=== PATIENT | female | born 1970 | race African-American/Black ===

== ENCOUNTER 2016-05-22 08:13 | Emergency (ER) | payer OTHER ==
[~2016-05-22] VITALS: Ht 160 cm; Wt 86.2 kg
[2016-05-22 08:14] VITALS: BP 142/97
[2016-05-22] MEDS ORDERED: IMITREX 25 MG T25 M1 PO (08:44)
== END 2016-05-22 08:45 | disposition home or self-care (01) ==
LOC: ER 08:13
DX: Q38.6 Other congenital malformations of mouth (principal)

== ENCOUNTER → 2017-06-04 | Outpatient (CLI) | payer OTHER ==
[~2017-06-04] MED LIST: IMITREX 25 MG T25 M1 PO
== END ==
LOC: RAD 06-03 10:21
DX: Z12.31 Encounter for screening mammogram for malignant neoplasm of breast (principal)

== ENCOUNTER → 2017-06-09 | Outpatient (CLI) | payer OTHER ==
--- NOTE | ~2017-06-09 | S ---
[facility] [place] [address] SURGICAL PATH RPT PROCEDURE Name: ISABEL DAHL Room #: REG TUTU MelloPatriciaKira.#: [id number] Admission: 06/09/17 Date of : 70 Discharge: Report #: [id number] Path Case #: [id number] PATHOLOGY REPORT COLLECTION DATE: 06/09/2017 RECEIVED DATE: 06/09/2017 SUBMITTING PHYS: Dr. John Oneill OTHER PHYS: Dr. Sayra Mark SPECIMEN(S) RECEIVED: A.Right breast calcifications-central * * * * * * * * * * * * FINAL DIAGNOSIS: "Right breast calcifications-central", imaging guided needle biopsy: - Fibroadenoma with coarse microcalcifications present, measuring 0.5 cm on the slide. - Background benign breast tissue with fibrocystic changes including stromal fibrosis, small cyst formation, columnar cell hyperplasia and adenosis; no cytologic atypia or malignancy seen. COMMENT: The case is co-reviewed with Dr. Ronda Whatley. Clinical and radiographic correlation is recommended. (CLW:winnie; 06/10/2017) PATHOLOGIST: Cece Powell M.D. REPORT ELECTRONICALLY SIGNED BY: Cece Powell M.D. DATE/TIME: 06/10/2017 21:05 * * * * * * * * * * * * GROSS PATHOLOGY: Received in formalin labeled "Isabel Dahl, right stereotactic breast biopsy, central per requisition slip" and consists of a few huston-white and resilient tissue cores/fragments ranging in size from 0.5 x 0.3 cm to 3.3 x 0.4 cm. 2 cores are received in a white cassette. The specimen is totally submitted A1-A3, A1 cores received in white cassette. The cold ischemic time is 5 minutes. The formalin fixation time is approximately 11 hours. (ALESIA; 06/09/2017) CLINICAL HISTORY: Right breast calcification INITIAL CPT CODE(S): [facility] [place] [address] SURGICAL PATH RPT PROCEDURE Name: ISABEL DAHL Room #: REG [facility].#: [id number] Admission: 06/09/17 Date of : 70 Discharge: Report #: [id number] Path Case #: [id number]; [id number] Professional services performed by [facility] at [address] , [place] [address] Technical services performed by [facility] at [address] [place] [address], [place] [address]. [facility] [address] [place] [address] PHONE: [phone] DIRECTOR: Tonio Smallwood M.D. * * * END OF REPORT * * *
== END ==
LOC: RADSTEREO 01:18
DX: D24.1 Benign neoplasm of right breast (principal); N62 Hypertrophy of breast

== ENCOUNTER → 2017-12-09 | Outpatient (CLI) | payer OTHER | LOC: RAD 02:33 | DX: R92.8 Other abnormal and inconclusive findings on diagnostic imaging of breast (principal); G43.911 Migraine, unspecified, intractable, with status migrainosus ==

== ENCOUNTER → 2018-06-22 | Outpatient (CLI) | payer OTHER | LOC: RAD 10:05 | DX: N60.19 Diffuse cystic mastopathy of unspecified breast (principal); R92.8 Other abnormal and inconclusive findings on diagnostic imaging of breast ==

== ENCOUNTER → 2019-07-04 | Outpatient (CLI) | payer OTHER | LOC: RAD 09:50 | DX: Z12.31 Encounter for screening mammogram for malignant neoplasm of breast (principal) ==

== ENCOUNTER → 2020-07-16 | Outpatient (CLI) | payer OTHER | LOC: BC 10:25 | PROVIDERS: ATTEND Internal Medicine | DX: Z12.31 Encounter for screening mammogram for malignant neoplasm of breast (principal) ==